=== PATIENT | male | born 1990 | race African-American/Black ===

== ENCOUNTER 2018-05-14 21:22 | Emergency (ER) | payer SELFPAY, OTHER ==
[~2018-05-14] VITALS: Ht 185.4 cm; Wt 86.2 kg
[2018-05-14] MEDS ORDERED: NKM (21:35)
[2018-05-14 21:42] VITALS: BP 108/69
--- NOTE | 2018-05-14 21:52 | Emergency Room Report ---
History of Present Illness General Chief Complaint: Medical Clearance Source: Patient Present Illness HPI This is a 28-year-old male brought in by police with chief complaint of medical clearance. Patient was arrested for receiving still in good. He claimed that he brought the bicycle last week. He was brought in because he had injury to his head and left knee from a fall yesterday. He does not want anything to be done. No loss of consciousness. No nausea no vomiting. Been walking on it without any problem. Denies any pain. Allergies: Coded Allergies: No Known Allergies (Unverified , 05/14/18) Patient History Past Medical History: none, see triage record, old chart reviewed Past Surgical History: none Pertinent Family History: none Social History: Denies: smoking Immunizations: other Reviewed Nursing Documentation: PMH: Agreed; PSxH: Agreed Nursing Documentation-PMH Past Medical History: No Stated History Review of Systems Eye: Denies: eye pain, blurred vision ENT: Denies: ear pain, nose congestion, throat swelling Respiratory: Denies: cough, shortness of breath Cardiovascular: Denies: chest pain, palpitations Gastrointestinal: Denies: abdominal pain, diarrhea, nausea, vomiting Musculoskeletal: Denies: back pain, joint pain Skin: Denies: rash Neurological: Denies: headache, numbness Endocrine: Denies: increased thirst, increased urine Hematologic/Lymphatic: Denies: easy bruising All Other Systems: negative except mentioned in HPI Physical Exam Vital Signs Date Time Temp Pulse Resp B/P (MAP) Pulse Ox O2 Delivery O2 Flow Rate FiO2 05/14/18 21:35 97.4 83 16 108/69 95 Room Air 97.3 vitals normal Sp02 EP Interpretation: reviewed, normal General Appearance: well appearing, no apparent distress, alert Head: normocephalic, other - Left forehead with 1 cm laceration. No foreign body. No bleeding. Eyes: bilateral eye PERRL, bilateral eye EOMI ENT: hearing grossly normal, normal pharynx Neck: full range of motion, supple, no meningismus Respiratory: chest non-tender, lungs clear, normal breath sounds Cardiovascular #1: regular rate, rhythm, no murmur Gastrointestinal: normal bowel sounds, non tender, no mass, no organomegaly, no bruit, non-distended Musculoskeletal: back normal, gait/station normal, normal range of motion, other - left knee wiabrasion over the patella. no tenderness. No deformity. Neurologic: alert, oriented x3 Psychiatric: mood/affect normal Skin: warm/dry Medical Decision Making Diagnostic Impression: Primary Impression: Head injury, acute Qualified Codes: S09.90XA - Unspecified injury of head, initial encounter Additional Impressions: Forehead laceration Qualified Codes: S01.81XA - Laceration without foreign body of other part of head, initial encounter Abrasion of knee, left Qualified Codes: S80.212A - Abrasion, left knee, initial encounter Examination for medicolegal reason ER Course Patient here for medical clearance for booking. He does have injury that is about 24 hours old. He denies any symptom. Low risk for intracranial bleed or skull fracture. He does not want anything to be done. We'll discharge to police. Last Vital Signs Date Time Temp Pulse Resp B/P (MAP) Pulse Ox O2 Delivery O2 Flow Rate FiO2 05/14/18 21:35 97.4 83 16 108/69 95 Room Air 97.3 Status: unchanged Disposition: D/C TO LAW ENFORCEMENT IN [facility] Condition: Stable Referrals: [facility],REFERRING (PCP) Additional Instructions: Follow-up with your doctor as needed. Return if worse. EUGENE NUR M.D. May 14, 2018 21:52
[2018-05-14 22:04] VITALS: BP 110/70
[2018-05-14 22:05] VITALS: BP 108/69
== END 2018-05-14 22:08 ==
LOC: EMR 21:39
DX: S01.81XA Laceration without foreign body of other part of head, initial encounter (principal); V18.0XXA Pedal cycle driver injured in noncollision transport accident in nontraffic accident, initial encounter; Y93.55 Activity, bike riding; Y92.9 Unspecified place or not applicable; S80.212A Abrasion, left knee, initial encounter; Z02.89 Encounter for other administrative examinations
CPT/HCPCS: 99284

== ENCOUNTER 2018-09-14 02:33 | Emergency (ER) | payer SELFPAY, MEDICAID ==
[~2018-09-14] VITALS: Ht 182.9 cm; Wt 74.8 kg
[~2018-09-14 02:33] MED LIST: NKM
[2018-09-14 02:39] VITALS: BP 102/74
[2018-09-14 02:44] VITALS: BP 102/74
--- NOTE | 2018-09-14 03:58 | Emergency Room Report ---
History of Present Illness General Chief Complaint: Medical Clearance Source: Patient Present Illness HPI 28-year-old male presents ED for evaluation. Patient is here for alf clearance. Is in police custody. Patient stated he had abdominal pain earlier today. Pain is epigastric, 7 out of 10, nonradiating. He then had an episode of vomiting. Since then he states he is no longer having abdominal pain. Denies any nausea. Denies any fevers or chills. Denies chest pain or shortness of breath. No other aggravating relieving factors. Denies any other associated symptoms Allergies: Coded Allergies: No Known Allergies (Unverified , 05/14/18) Patient History Past Medical History: none Past Surgical History: none Pertinent Family History: none Social History: Denies: smoking, alcohol use, drug use Immunizations: UTD Reviewed Nursing Documentation: PMH: Agreed; PSxH: Agreed Nursing Documentation-PMH Past Medical History: No Stated History Review of Systems All Other Systems: negative except mentioned in HPI Physical Exam Vital Signs Date Time Temp Pulse Resp B/P (MAP) Pulse Ox O2 Delivery O2 Flow Rate FiO2 09/14/18 02:35 98.7 84 16 102/74 97 Room Air 98.8 Sp02 EP Interpretation: reviewed, normal General Appearance: no apparent distress, alert, GCS 15, non-toxic Head: normocephalic Eyes: bilateral eye normal inspection, bilateral eye PERRL ENT: normal ENT inspection Neck: normal inspection Respiratory: normal inspection Cardiovascular #1: normal inspection Gastrointestinal: normal bowel sounds, non tender, soft, non-distended, no guarding, no rebound Rectal: deferred Genitourinary: no CVA tenderness Musculoskeletal: normal inspection Neurologic: alert, oriented x3, responsive, motor strength/tone normal, sensory intact, speech normal Psychiatric: normal inspection Skin: normal inspection Lymphatic: normal inspection Medical Decision Making Diagnostic Impression: Primary Impression: Medical clearance for incarceration ER Course Hospital Course 28-year-old male presents to ED for and alf clearance. Patient had abdominal pain which resolved after vomiting Clinical course Patient placed on stretcher. Handcuffs. After initial history, physical exam reveals a male in no acute distress. On exam abdomen was soft, no guarding or rebound. Vital stable. No nausea at this time. Patient medically cleared for incarceration Diagnosis - medical clearance for incarceration stable and discharged into police custody Last Vital Signs Date Time Temp Pulse Resp B/P (MAP) Pulse Ox O2 Delivery O2 Flow Rate FiO2 09/14/18 02:44 98.8 84 16 102/74 97 Room Air 98.8 Status: improved Disposition: D/C TO LAW ENFORCEMENT IN [facility] Condition: Stable Referrals: [facility],REFERRING (PCP) Departure Forms: Senior Care Clearance Patient Instructions: Gastritis, Adult, [id number] Ant Duggan MD Sep 14, 2018 03:58
== END 2018-09-14 02:45 ==
LOC: EMR 02:44
DX: R10.13 Epigastric pain (principal); R11.10 Vomiting, unspecified; Z02.89 Encounter for other administrative examinations
CPT/HCPCS: 99282